=== PATIENT | female | born 1980 | race American Indian/Alaskan Native ===

== ENCOUNTER 2022-02-20 20:31 | Emergency (ER) | payer MEDICAID ==
[2022-02-20] MEDS ORDERED: cloNIDine 0.1 MG TAB PO ONE (22:04)
[2022-02-20 23:07] LABS: Basophils # (Auto) 0.1 K/mm3 (0.0-0.1); Basophils % (Auto) 0.9 % (0.0-1.8); Eosinophils # (Auto) 0.5 K/mm3 (0.0-0.4); Eosinophils % (Auto) 7.1 % (0.0-4.3); Hematocrit 37.4 % (30.3-42.9); Hemoglobin 12.4 gm/dl (10.1-14.3); Lymphocytes # (Auto) 2.6 K/mm3 (1.2-5.4); Lymphocytes % (Auto) 39.2 % (13.4-35.0); Mean Corpuscular HGB Conc 33 % (30-34); Mean Corpuscular Volume 83 fl (79-97); Monocytes # (Auto) 0.6 K/mm3 (0.0-0.8); Monocytes % (Auto) 8.5 % (0.0-7.3); Platelet Count 355 K/mm3 (140-440); Red Blood Count 4.51 M/mm3 (3.65-5.03); Red Cell Distribution Width 16.6 % (13.2-15.2)
[2022-02-20 23:26] LABS: Alanine Aminotransferase 13 units/L (7-56); BUN/Creatinine Ratio 16; Blood Urea Nitrogen 16 mg/dL (7-17); Hemolysis Index 9
--- NOTE | 2022-02-20 23:31 | Emergency Department Report ---
ED General Adult HPI - General Chief complaint: Headache Stated complaint: HEAD COLD Time Seen by Provider: 02/20/22 23:09 Source: patient Mode of arrival: Ambulatory Limitations: No Limitations - History of Present Illness Initial comments: 41-year-old female past medical history hypertension reports to the ER with complaints of cough cold congestion with chills since . Patient reports taking [id number] medication with no relief. Patient reports she has not taken her blood pressure medication the last 2 days due to her cough cold co ngestion. Patient reports she just recently seen her PCP. No numbness no tingling this no chest pain or shortness of breath reported. No blurred vision. Patient reports taking COVID test and she has been negative last week. - Related Data Previous Rx's Medication Instructions Recorded Last Taken Type Amoxicillin/K Clav Tab [Augmentin 1 tab PO Q12HR 5 Days #10 tab 02/20/22 Unknown Rx 875 mg] methylPREDNISolone [Medrol 4MG 4 mg PO DAILY #1 pack 02/20/22 Unknown Rx DOSEPAK (21 tabs)] Allergies Allergy/AdvReac Type Severity Reaction Status Date / Time No Known Allergies Allergy Unverified 02/20/22 20:57 ED Review of Systems ROS: Stated complaint: HEAD COLD Other details as noted in HPI Comment: All other systems reviewed and negative Constitutional: chills ENT: congestion Respiratory: cough ED Past Medical Hx - Past Medical History Previous Medical History?: Yes Hx Hypertension: Yes - Medications Home Medications: Home Medications Medication Instructions Recorded Confirmed Last Taken Type Amoxicillin/K Clav Tab [Augmentin 1 tab PO Q12HR 5 Days #10 tab 02/20/22 Unknown Rx 875 mg] methylPREDNISolone [Medrol 4MG 4 mg PO DAILY #1 pack 02/20/22 Unknown Rx DOSEPAK (21 tabs)] ED Physical Exam - General Limitations: No Limitations General appearance: alert, in no apparent distress - Head Head exam: Present: atraumatic, normocephalic - Eye Eye exam: Present: normal appearance - ENT ENT exam: Present: mucous membranes moist, other (Bilateral maxillary sinus pressure and tenderness.) - Neck Neck exam: Present: normal inspection - Respiratory Respiratory exam: Present: normal lung sounds bilaterally. Absent: respiratory distress - Cardiovascular Cardiovascular Exam: Present: regular rate, normal rhythm. Absent: systolic murmur, diastolic murmur, rubs, gallop - GI/Abdominal GI/Abdominal exam: Present: soft, normal bowel sounds - Extremities Exam Extremities exam: Present: normal inspection - Back Exam Back exam: Present: normal inspection - Neurological Exam Neurological exam: Present: alert, oriented X3 - Psychiatric Psychiatric exam: Present: normal affect, normal mood - Skin Skin exam: Present: warm, dry, intact, normal color. Absent: rash ED Course Vital Signs 02/20/22 02/20/22 20:53 22:36 Temperature 98.2 F Pulse Rate 66 Respiratory 20 Rate Blood Pressure 189/115 Blood Pressure 211/140 [Right] O2 Sat by Pulse 96 Oximetry ED Medical Decision Making - Lab Data Result diagrams: 02/20/22 22:29 02/20/22 22:29 - Medical Decision Making 41-year-old female reports to the ER with cough cold congestion started today. Patient also reports she has been taking her blood pressure medication for 2 days due to her cough cold congestion. Physical exam patient has bilateral maxillary pressure and tenderness noted. Cough is present. No neurological deficits noted. Patient received clonidine 0.1 in the ER. BP went from 211/140-180 9/115 CBC CMP with no acute process unremarkable. Patient informed to continue to take her medication even if she is not feeling well to prevent her from having elevated blood pressure and decreasing her risk of stroke as well as other cardiac events. Patient verbalizes understanding of taking her blood pressure medication. Patient recently saw her primary care provider about 2 weeks ago and was recently started on a new blood pressure medication patient unable to name the medication but does report having medication at home. Patient informed to take her medication as directed. Patient will be treated as acute sinusitis Patient agrees with plan of care and verbalized understanding. Vital Signs 02/20/22 02/20/22 20:53 22:36 Temperature 98.2 F Pulse Rate 66 Respiratory 20 Rate Blood Pressure 189/115 Blood Pressure 211/140 [Right] O2 Sat by Pulse 96 Oximetry Lab Results 02/20/22 02/20/22 Range/Units 22:29 22:29 WBC 6.6 (4.5-11.0) K/mm3 RBC 4.51 (3.65-5.03) M/mm3 Hgb 12.4 (10.1-14.3) gm/dl Hct 37.4 (30.3-42.9) % MCV 83 (79-97) fl MCH 28 (28-32) pg MCHC 33 (30-34) % RDW 16.6 H (13.2-15.2) % Plt Count 355 (140-440) K/mm3 Lymph % (Auto) 39.2 H (13.4-35.0) % [place] % (Auto) 8.5 H (0.0-7.3) % Eos % (Auto) 7.1 H (0.0-4.3) % Baso % (Auto) 0.9 (0.0-1.8) % Lymph # (Auto) 2.6 (1.2-5.4) K/mm3 [place] # (Auto) 0.6 (0.0-0.8) K/mm3 Eos # (Auto) 0.5 H (0.0-0.4) K/mm3 Baso # (Auto) 0.1 (0.0-0.1) K/mm3 Seg Neutrophils % 44.3 (40.0-70.0) % Seg Neutrophils # 2.9 (1.8-7.7) K/mm3 Sodium 140 (137-145) mmol/L Potassium 4.2 (3.6-5.0) mmol/L Chloride 105.2 (98-107) mmol/L Carbon Dioxide 22 (22-30) mmol/L Anion Gap 17 mmol/L BUN 16 (7-17) mg/dL Creatinine 1.0 (0.6-1.2) mg/dL Estimated GFR > 60 ml/min BUN/Creatinine Ratio 16 % Glucose 94 (65-100) mg/dL Calcium 9.0 (8.4-10.2) mg/dL Total Bilirubin < 0.20 (0.1-1.2) mg/dL AST 16 (5-40) units/L ALT 13 (7-56) units/L Alkaline Phosphatase 85 (35-129) units/L Troponin T < 0.010 (0.00-0.029) ng/mL Total Protein 6.9 (6.3-8.2) g/dL Albumin 4.0 (3.9-5) g/dL Albumin/Globulin Ratio 1.4 % Critical care attestation.: If time is entered above; I have spent that time in minutes in the direct care of this critically ill patient, excluding procedure time. ED Disposition Clinical Impression: Maxillary sinusitis, acute, Nasal congestion, Hypertension Disposition: HOME / SELF CARE / HOMELESS Is pt being admited?: No Condition: Stable Instructions: Sinusitis, Adult, [id number], Hypertension, Adult, [id number], Hypertension (ED) Prescriptions: Amoxicillin/K Clav Tab [Augmentin 875 mg] 1 tab PO Q12HR 5 Days #10 tab methylPREDNISolone [Medrol 4MG DOSEPAK (21 tabs)] 4 mg PO DAILY #1 pack Forms: Work/School Release Form(ED)
[2022-02-21 00:55] VITALS: BP 205/142
== END 2022-02-21 00:55 | disposition home or self-care (01) ==
LOC: ED 20:31
DX: J01.00 Acute maxillary sinusitis, unspecified (principal); R09.81 Nasal congestion; I10 Essential (primary) hypertension
CPT/HCPCS: 36415; 80053; 84484; 85025; 99283